=== PATIENT | male | born 1965 | race Two or more races ===

== ENCOUNTER 2021-01-11 22:17 | Inpatient (IN) | payer MEDICAID ==
[~2021-01-11] VITALS: Ht 167.6 cm; Wt 77.1 kg
[2021-01-12 03:00] VITALS: BP 154/106
[2021-01-12] MEDS ORDERED: ONDANSETRON HCL/PF 4 MG/2 ML VIAL IVP PRN (03:30)
[2021-01-12] MEDS ORDERED: ACETAMINOPHEN 325 MG TABLET PO PRN (03:30)
[2021-01-12] MEDS ORDERED: Z GUARD REMEDY 2 OZ OINT TP PRN (03:30)
[2021-01-12] MEDS ORDERED: LISINOPRIL (20MG) 20 MG TABLET PO ONE (04:00)
--- NOTE | 2021-01-12 04:00 | NUR ---
FILM WRITER NOTE Patient arrived from [facility] Er at 0300 on gurney accompanied by 2 metallurgical tester. Initial VS: B/P 175/119, HR 91, RR 18, O2 97% on RA, temp 97.5. Patient states he was having diarrhea that looked bright red like fresh blood x3 and another in ER. Reports having come back from [place] day prior to start on bloody BMs. Reports no other associated symptoms like dizziness, fatigue, weakness, SOB. states he feels fine besides stomach rumbling. Abdomen soft and non-tender, bowel sounds active x4. extremities perfused well cap refill <3 seconds. Heart rate and rhythm regular. Pupils equal and reactive to light. No skin issues, no edema. Reports only hx as htn and hernia repair. Reports taking no medications at home. Educated pt. that he will be on clear liquid diet. Oriented to room, unit protocols, remote/call light and bed controls. All personal items accounted foron inventory list. MRSA swab obtained and put in biohazard fridge. stated okay to give first dose of lisinopril now for elevated BP. Will recheck.
[2021-01-12] MEDS: IV NS 0.9% 1,000 ML IV PRN ×2 (04:01→18:51)
--- NOTE | 2021-01-12 05:30 | NUR ---
Patient B/P went down to 152/98.
[2021-01-12 05:42] VITALS: BP 152/98
--- NOTE | 2021-01-12 06:45 | NUR ---
Patient is still A&Ox4. No BM since admission. NS currently infusing to RAC #20G PIV at 75cc/hr. Patient still reports being asymptomatic. Will endorse to oncoming RN.
[2021-01-12 06:50] LABS: HEMOGLOBIN 11.2 g/dL (13.5-17.5)
[2021-01-12 06:59] LABS: CALCIUM, SERUM 7.8 mg/dL (8.5-10.1); CREATININE 0.9 mg/dL (0.6-1.3); MAGNESIUM 2.1 mg/dL (1.8-2.4); PHOSPHORUS 2.8 mg/dL (2.5-4.9); POTASSIUM 3.7 mmol/L (3.5-5.1)
[2021-01-12] MEDS: PANTOPRAZOLE 40 MG TABLET.DR PO SCH (07:32)
--- NOTE | 2021-01-12 07:45 | NUR ---
MS RN OPENING NOTE RECEIVED PT IN BED WITH EYES CLOSED, EASY TO AROUSE. A/O X4. PT IS STABLE ON ROOM AIR WITH NO SOB OR S/S OF RESPIRATORY DISTRESS NOTED. PT HAS NO C/O PAIN OR DISCOMFORT AT THIS TIME. IV ACCESS IN RAC #20 INFUSING NS AT 75ML/HR, INTACT AND PATENT. SAFETY PRECAUTIONS MAINTAINED. BED IN LOWEST LOCKED POSITION, HOB ELEVATED, SIDE RAILS UP X2. CALL LIGHT AND TABLE WITHIN REACH. WILL CONTINUE TO MONITOR.
[2021-01-12] MEDS ORDERED: LISINOPRIL (20MG) 20 MG TABLET PO SCH (09:00)
[2021-01-12] MEDS ORDERED: LORAZEPAM INJ 2 MG/ML VIAL IV PRN (10:30)
[2021-01-12 11:56] LABS: HEMOGLOBIN 11.1 g/dL (13.5-17.5)
--- NOTE | 2021-01-12 18:34 | NUR ---
MS RN CLOSING NOTE PT IS AWAKE IN BED. A/O X4. PT IS STABLE ON ROOM AIR WITH NO SOB OR S/S OF RESPIRATORY DISTRESS NOTED. PT HAS NO C/O PAIN OR DISCOMFORT AT THIS TIME. IV ACCESS IN RAC #20 INFUSING NS AT 75ML/HR, INTACT AND PATENT. ALL NEEDS HAVE BEEN MET. SAFETY PRECAUTIONS MAINTAINED AT ALL TIMES. BED IN LOWEST LOCKED POSITION, HOB ELEVATED, SIDE RAILS UP X2. CALL LIGHT AND TABLE WITHIN REACH. WILL ENDORSE TO ONCOMING NURSE FOR TRES.
--- NOTE | 2021-01-12 19:45 | NUR ---
MS RN OPENING NOTE PATIENT AWAKE IN BED WITH AT BEDSIDE, A/O X 4, PT ABLE TO MAKE NEEDS KNOWN. PT IS STABLE ON ROOM AIR, NO SOB OR S/S OF RESPIRATORY DISTRESS NOTED. PT DENIES PAIN OR DISCOMFORT AT THIS TIME. IV ACCESS IN RAC #20 INTACT AND INFUSING NS AT 75ML/HR. SAFETY PRECAUTIONS IN PLACE: BED LOCKED IN LOW POSITION, HOB ELEVATED, SIDE RAILS UP X2. CALL LIGHT AND TABLE WITHIN REACH. WILL CONTINUE TO MONITOR PATIENT
[2021-01-12 20:00] VITALS: BP 136/82
[2021-01-12 23:27] LABS: HEMOGLOBIN 11.3 g/dL (13.5-17.5)
[2021-01-13 06:27] LABS: BASOPHILS # (AUTO) 0.1 K/uL (0.0-0.2); BASOPHILS % (AUTO) 1.2 % (0.0-2.0); EOSINOPHILS % (AUTO) 5.6 % (0.0-6.0); HEMATOCRIT 34 % (39-51); HEMOGLOBIN 11.6 g/dL (13.5-17.5); LYMPHOCYTES # (AUTO) 1.4 K/uL (0.8-4.8); LYMPHOCYTES % (AUTO) 22.7 % (20.0-44.0); MEAN CORPUSCULAR HGB CONC 34 g/dl (31.0-36.0); MEAN CORPUSCULAR VOLUME 100 fL (80-96); MONOCYTES # (AUTO) 0.4 K/uL (0.1-1.30); MONOCYTES % (AUTO) 6.9 % (2.0-12.0); NEUTROPHILS # (AUTO) 3.9 K/uL (1.8-8.9); NEUTROPHILS % (AUTO) 63.6 % (43.0-81.0); PLATELET COUNT (AUTO) 268 K/uL (150-450); RED BLOOD CELL COUNT(AUTO) 3.41 MIL/uL (4.5-6.0); WHITE BLOOD COUNT (AUTO) 6.1 K/uL (4.3-11.0)
[2021-01-13 06:48] LABS: CALCIUM, SERUM 7.9 mg/dL (8.5-10.1); CREATININE 0.9 mg/dL (0.6-1.3); MAGNESIUM 2.2 mg/dL (1.8-2.4); PHOSPHORUS 2.7 mg/dL (2.5-4.9); POTASSIUM 4.1 mmol/L (3.5-5.1)
--- NOTE | 2021-01-13 07:30 | NUR ---
MS RN CLOSING NOTE PATIENT SLEEPING IN BED, APPEARS COMFORTABLE AND NOT IN ANY DISTRESS. PT IS STABLE ON ROOM AIR, NO SOB OR S/S OF RESPIRATORY DISTRESS NOTED. IV ACCESS IN RIGHT AC #20 INTACT AND INFUSING NS AT 75ML/HR. MEDICATIONS GIVEN ORDERED, PT NEEDS MET THROUGHOUT SHIFT. SAFETY PRECAUTIONS IN PLACE: BED LOCKED IN LOW POSITION, SIDE RAILS UP X2, CALL LIGHT AND TABLE WITHIN REACH. ENDORSED TO DAY SHIFT NURSE FOR CONTINUITY OF CARE
[2021-01-13 08:00] VITALS: BP 146/88
[2021-01-13] MEDS: LISINOPRIL (20MG) 20 MG TABLET PO SCH (08:31)
[2021-01-13] MEDS: PANTOPRAZOLE 40 MG TABLET.DR PO SCH (08:31)
[2021-01-13] MEDS: THIAMINE HCL 100 MG TABLET PO SCH (10:20)
[2021-01-13] MEDS: IV NS 0.9% 1,000 ML IV PRN (12:20)
[2021-01-13 15:58] VITALS: BP 167/96
--- NOTE | 2021-01-13 18:20 | NUR ---
MS RN CLOSING NOTE PATIENT RESTING IN BED, APPEARS COMFORTABLE AND NOT IN ANY DISTRESS. PT IS STABLE ON ROOM AIR, NO SOB OR S/S OF RESPIRATORY DISTRESS NOTED. IV ACCESS INTACT AND INFUSING WELL. MEDICATIONS GIVEN ORDERED, PT NEEDS MET THROUGHOUT SHIFT. SAFETY PRECAUTIONS IN PLACE: BED LOCKED IN LOW POSITION, SIDE RAILS UP X2, CALL LIGHT AND TABLE WITHIN REACH. WILL ENDORSE TO SUPERVISOR [employer] NURSE FOR CONTINUITY OF CARE
--- NOTE | 2021-01-13 19:45 | NUR ---
MS RN OPENING NOTE PATIENT AWAKE IN BED WITH AT BEDSIDE, A/O X 4, PT ABLE TO MAKE NEEDS KNOWN. PT IS STABLE ON ROOM AIR, NO SOB OR S/S OF RESPIRATORY DISTRESS NOTED. PT DENIES PAIN OR DISCOMFORT AT THIS TIME. IV ACCESS IN RAC #20 INTACT AND INFUSING NS AT 75ML/HR. PATIENT ON FULL LIQUID DIET BUT WILL BE NPO @ MIDNIGHT PER DR. REY. SAFETY PRECAUTIONS IN PLACE: BED LOCKED IN LOW POSITION, HOB ELEVATED, SIDE RAILS UP X2, CALL LIGHT AND TABLE WITHIN REACH. WILL CONTINUE TO MONITOR PATIENT
[2021-01-13 20:00] VITALS: BP 145/93
[2021-01-14] MEDS: IV NS 0.9% 1,000 ML IV PRN ×2 (06:07→18:16)
[2021-01-14 06:13] LABS: BASOPHILS # (AUTO) 0.1 K/uL (0.0-0.2); BASOPHILS % (AUTO) 1.2 % (0.0-2.0); EOSINOPHILS % (AUTO) 5.2 % (0.0-6.0); HEMATOCRIT 34 % (39-51); HEMOGLOBIN 11.6 g/dL (13.5-17.5); LYMPHOCYTES # (AUTO) 1.7 K/uL (0.8-4.8); LYMPHOCYTES % (AUTO) 28.1 % (20.0-44.0); MEAN CORPUSCULAR HGB CONC 34 g/dl (31.0-36.0); MEAN CORPUSCULAR VOLUME 99 fL (80-96); MONOCYTES # (AUTO) 0.5 K/uL (0.1-1.30); MONOCYTES % (AUTO) 7.9 % (2.0-12.0); NEUTROPHILS # (AUTO) 3.5 K/uL (1.8-8.9); NEUTROPHILS % (AUTO) 57.6 % (43.0-81.0); PLATELET COUNT (AUTO) 286 K/uL (150-450); RED BLOOD CELL COUNT(AUTO) 3.42 MIL/uL (4.5-6.0); WHITE BLOOD COUNT (AUTO) 6.1 K/uL (4.3-11.0)
--- NOTE | 2021-01-14 06:20 | NUR ---
MS RN CLOSING NOTE PATIENT SLEEPING IN BED, APPEARS COMFORTABLE AND NOT IN ANY DISTRESS. NO SIGNIFICANT CHANGES THROUGHOUT SHIFT. NO BLOODY STOOLS REPORTED. PT IS STABLE ON ROOM AIR, NO SOB OR S/S OF RESPIRATORY DISTRESS NOTED. IV ACCESS IN RIGHT AC #20 INTACT AND INFUSING NS AT 75ML/HR. MEDICATIONS GIVEN ORDERED, PT NEEDS MET THROUGHOUT SHIFT. PATIENT HAS BEEN NPO SINCE MIDNIGHT PER DR. REY ORDERS. SAFETY PRECAUTIONS IN PLACE: BED LOCKED IN LOW POSITION, SIDE RAILS UP X2, CALL LIGHT AND TABLE WITHIN REACH. WILL ENDORSE TO DAY SHIFT NURSE FOR CONTINUITY OF CARE
--- NOTE | 2021-01-14 07:30 | NUR ---
MS RN OPENING NOTES RECEIVED PATIENT ON AWAKE ON BED AND A/O X4. ON ROOM AIR TOLERATING WELL. NO SOB NOTED. NOT IN DISTRESS. WITH NO COMPLAINTS OF PAIN AND DISCOMFORT AT THIS TIME. WITH IV ACCESS AT RIGHT AC G20 WITH NS AT 75ML/HR INFUSING WELL. SAFETY MEASURES IN PLACE. CALL LIGHT WITHIN REACH. BED ON LOWEST AND LOCKED POSITION, SIDE RAILS UP X2. WILL CONTINUE TO MONITOR.
[2021-01-14 07:35] LABS: CALCIUM, SERUM 8.7 mg/dL (8.5-10.1); POTASSIUM 4.1 mmol/L (3.5-5.1)
[2021-01-14 08:00] VITALS: BP 161/102
[2021-01-14] MEDS: LISINOPRIL (20MG) 20 MG TABLET PO SCH (08:15)
[2021-01-14] MEDS: THIAMINE HCL 100 MG TABLET PO SCH (08:16)
[2021-01-14] MEDS: PANTOPRAZOLE 40 MG TABLET.DR PO SCH (08:16)
[2021-01-14] MEDS: PANTOPRAZOLE 40 MG VIAL IV SCH ×2 (10:00→21:29)
[2021-01-14] MEDS ORDERED: LORAZEPAM INJ 2 MG/ML VIAL IV PRN (10:00)
[2021-01-14] MEDS ORDERED: ANESTHESIA TRAY IN PYXIS 1 EA TRAY MC ONE (13:06)
[2021-01-14] MEDS ORDERED: hydrALAZINE HCL IV 20 MG VIAL ONE (13:49)
--- NOTE | 2021-01-14 14:30 | NUR ---
MS RN NOTES RECEIVED PATIENT FROM OR ENDORSED BY NURSE BAZZI. VITAL SIGNS CHECKED: BP-151/98, SD-79, RR-18, TEMP-98.0 AND O2 SAT-98%. ON REGULAR DIET. ON ROOM AIR TOLERATING WELL. NO SOB NOTED. NOT IN DISTRESS. WILL MONITOR.
[2021-01-14 16:00] VITALS: BP 151/82
--- NOTE | 2021-01-14 18:35 | NUR ---
MS RN CLOSING NOTES PATIENT ON RESTING ON BED AND A/O X4. ON ROOM AIR TOLERATING WELL. NO SOB NOTED. NOT IN DISTRESS. WITH NO COMPLAINTS OF PAIN AND DISCOMFORT AT THIS TIME. WITH IV ACCESS AT RIGHT AC G20 WITH NS AT 75ML/HR INFUSING WELL. SAFETY MEASURES IN PLACE. CALL LIGHT WITHIN REACH. BED ON LOWEST AND LOCKED POSITION, SIDE RAILS UP X2. WILL ENDORSE TO NEXT SHIFT FOR TRES.
--- NOTE | 2021-01-14 19:50 | NUR ---
MS RN OPENING NOTE PATIENT AWAKE IN BED WITH AT BEDSIDE, A/O X 4, PT ABLE TO MAKE NEEDS KNOWN. PT IS STABLE ON ROOM AIR, NO SOB OR S/S OF RESPIRATORY DISTRESS NOTED. PT DENIES PAIN OR DISCOMFORT AT THIS TIME. IV ACCESS IN RAC #20 INTACT AND INFUSING NS AT 75ML/HR. PATIENT IS AMBULATORY WITH BRP. SAFETY PRECAUTIONS IN PLACE: BED LOCKED IN LOW POSITION, HOB ELEVATED, SIDE RAILS UP X2, CALL LIGHT AND TABLE WITHIN REACH. WILL CONTINUE TO MONITOR PATIENT
[2021-01-14 20:00] VITALS: BP 124/80
[2021-01-15 06:28] LABS: BASOPHILS # (AUTO) 0.1 K/uL (0.0-0.2); BASOPHILS % (AUTO) 1.5 % (0.0-2.0); EOSINOPHILS % (AUTO) 4.4 % (0.0-6.0); HEMATOCRIT 33 % (39-51); HEMOGLOBIN 11.2 g/dL (13.5-17.5); LYMPHOCYTES # (AUTO) 1.4 K/uL (0.8-4.8); LYMPHOCYTES % (AUTO) 24.2 % (20.0-44.0); MEAN CORPUSCULAR HGB CONC 34 g/dl (31.0-36.0); MEAN CORPUSCULAR VOLUME 99 fL (80-96); MONOCYTES # (AUTO) 0.5 K/uL (0.1-1.30); MONOCYTES % (AUTO) 8.1 % (2.0-12.0); NEUTROPHILS # (AUTO) 3.7 K/uL (1.8-8.9); NEUTROPHILS % (AUTO) 61.8 % (43.0-81.0); PLATELET COUNT (AUTO) 291 K/uL (150-450); RED BLOOD CELL COUNT(AUTO) 3.31 MIL/uL (4.5-6.0); WHITE BLOOD COUNT (AUTO) 5.9 K/uL (4.3-11.0)
[2021-01-15 06:32] LABS: CALCIUM, SERUM 8.2 mg/dL (8.5-10.1); CREATININE 0.9 mg/dL (0.6-1.3); POTASSIUM 3.9 mmol/L (3.5-5.1)
--- NOTE | 2021-01-15 07:20 | NUR ---
MS RN CLOSING NOTE PATIENT SLEEPING IN BED, APPEARS COMFORTABLE AND NOT IN ANY DISTRESS. NO SIGNIFICANT CHANGES THROUGHOUT SHIFT. NO BLOODY STOOLS REPORTED. PT IS STABLE ON ROOM AIR, NO SOB OR S/S OF RESPIRATORY DISTRESS NOTED. IV ACCESS IN RIGHT AC #20 INTACT AND INFUSING NS AT 75ML/HR. MEDICATIONS GIVEN ORDERED, PT NEEDS MET THROUGHOUT SHIFT. SAFETY PRECAUTIONS IN PLACE: BED LOCKED IN LOW POSITION, SIDE RAILS UP X2, CALL LIGHT AND TABLE WITHIN REACH. ENDORSED TO DAY SHIFT NURSE FOR CONTINUITY OF CARE
[2021-01-15] MEDS ORDERED: LISI20TA30 PO (07:31)
[2021-01-15] MEDS ORDERED: PANT40TA2 PO (07:31)
--- NOTE | 2021-01-15 07:50 | NUR ---
MS RN OPENING NOTES RECEIVED PATIENT IN BED, AWAKE, A/O X4. PATIENT ON ROOM AIR; BREATHING EVEN AND UNLABORED AT THIS TIME; NO SOB PRESENT. NO COMPLAINS OF PAIN. RAC IV ACCESS IN PLACE RUNNING NS @ 75 MLS/HR. WILL BE DISCHARGED TODAY PER MD. SAFETY PRECAUTIONS IN PLACE; BED IN LOW POSITION AND LOCKED, RAILS UP X2, CALL LIGHT WITHIN REACH. WILL CONTINUE TO MONITOR PATIENT.
[2021-01-15 08:03] VITALS: BP 155/98
[2021-01-15] MEDS: THIAMINE HCL 100 MG TABLET PO SCH (08:34)
[2021-01-15 08:35] VITALS: BP 155/98
[2021-01-15] MEDS: LISINOPRIL (20MG) 20 MG TABLET PO SCH (08:35)
[2021-01-15] MEDS: PANTOPRAZOLE 40 MG VIAL IV SCH (08:35)
[2021-01-15] MEDS ORDERED: PANTOPRAZOLE 40 MG TABLET.DR PO SCH (10:00)
--- NOTE | 2021-01-15 10:15 | NUR ---
MS LIBRARY CIRCULATION DEPARTMENT CHIEF NOTES PATIENT DISCHARGED HOME BY MD IN MEDICALLY STABLE CONDITION. PATIENT A.O X4 ABLE TO MAKE HIS NEEDS KNOWN. PATIENT SEEM BY PHYSICIAN AND UNDERSTOOD HIS DISCHARGE INSTRUCTIONS. ALL DISCHARGE PAPERWORK READY AND SIGNED BY PATIENT. BELONGINGS ACCOUNTED FOR AND FORM SIGNED WELL. SKIN INTACT. IV ACCESS REMOVED PRIOR TO PATIENT LEAVING THE UNIT. WRISTBAND REMOVED WELL. PATIENT LEFT THE FLOOR AMBULATORY AT 1005 ACCOMPANIED BY AN RN. PATIENT'S MET HIM DOWNSTAIRS AND THEY LEFT THE HOSPITAL IN A PRIVATE CAR.
== END 2021-01-15 10:10 | disposition home or self-care (01) | DRG 241 ==
LOC: MED 01-12 02:51
PROVIDERS: ADMIT Nurse Practitioner Acute Care; ATTEND Nurse Practitioner Acute Care
PROC: 0DJ08ZZ Inspection of Upper Intestinal Tract, Via Natural or Artificial Opening Endoscopic (ICD-10-PCS; principal; 2021-01-14)
DX: K29.70 Gastritis, unspecified, without bleeding (principal); E66.9 Obesity, unspecified; F10.10 Alcohol abuse, uncomplicated; I10 Essential (primary) hypertension; Y90.9 Presence of alcohol in blood, level not specified; F17.210 Nicotine dependence, cigarettes, uncomplicated; Z98.890 Other specified postprocedural states; F41.9 Anxiety disorder, unspecified; Z68.27 Body mass index [BMI] 27.0-27.9, adult
CPT/HCPCS: 36415; 80048-TC; 80061-TC; 83735-TC; 84100-TC; 85025-TC; 85027-TC; 87081-TC; C9113; G0378; J0360; J2704; J3490; J7030